=== PATIENT | female | born 1990 | race Caucasian/White ===

== ENCOUNTER 2019-07-05 12:45 | Emergency (ER) | payer MEDICAID ==
[~2019-07-05] VITALS: Ht 160 cm; Wt 68.9 kg
--- NOTE | 2019-07-05 13:58 | NUR ---
Patient discharged to home in stable condition. Written and verbal after care instructions given to patient and spouse. Patient and spouse verbalized understanding & compliance of instructions.
== END 2019-07-05 13:59 | disposition home or self-care (01) ==
LOC: ER 12:45
DX: S63.501A Unspecified sprain of right wrist, initial encounter (principal); V89.2XXA Person injured in unspecified motor-vehicle accident, traffic, initial encounter; Y93.89 Activity, other specified; Y92.89 Other specified places as the place of occurrence of the external cause; Y99.8 Other external cause status
CPT/HCPCS: 73110; A4663